=== PATIENT | male | born 1980 | race Hispanic/Latino ===

== ENCOUNTER 2021-03-22 02:48 | Emergency (ER) | payer OTHER, SELFPAY ==
[2021-03-22] MEDS ORDERED: Ondansetron ODT 4 MG TAB ONE (03:12)
== END 2021-03-22 03:22 | disposition home or self-care (01) ==
LOC: EDBD → MADERS 02:48
DX: U07.1 COVID-19 (principal); R11.0 Nausea
CPT/HCPCS: 99283; Q0162

== ENCOUNTER 2021-03-31 14:57 | Emergency (ER) | payer SELFPAY ==
[2021-04-01 07:16] LABS: SARS-CoV-2 PCR by NAA DETECTED (NotDetected)
== END 2021-03-31 16:30 | disposition home or self-care (01) ==
LOC: MADERS 14:57
DX: U07.1 COVID-19 (principal)
CPT/HCPCS: 99283; U0003; U0005